=== PATIENT | female | born 1975 | race Caucasian/White ===

== ENCOUNTER 2024-11-10 16:47 | Observation (INO) | payer OTHER, SELFPAY ==
[2024-11-10] VITALS (12 sets, daily range): BP systolic 110–168; BP diastolic 60–89; PULSE 98–118; RESP 15–25; TEMP 36.5–37.1; O2SAT 96–99; BMI 57.4
--- NOTE | 2024-11-10 17:06 | ED_ITS ---
HPI - General Adult General Chief complaint: Vaginal Bleeding Stated complaint: Heavy vaginal bleeding (2wks) Time Seen by Provider: 11/10/24 17:06 Source: patient Mode of arrival: Ambulatory History of Present Illness HPI narrative: 49-year-old woman presents complaining of persistent heavy vaginal bleeding with increasing weakness, developing exertional dyspnea, cold extremities, significant fatigue headaches all within the last week. She is seen by a primary care provider in [place], has been changed from norethindrone alone to estrogen progesterone control pill is taken 2 doses of this. She had an ultrasound last week, has a materials analyst appointment on November 13 here at [facility]. He is concerned with the continued bleeding. Describes feeling 3 large overnight pads with clots in the course of the day today. Related Data Allergies Allergy/AdvReac Type Severity Reaction Status Date / Time Sulfa (Sulfonamide AdvReac Hives Verified 11/10/24 16:54 Antibiotics) Patient History Medical History (Updated 11/10/24 @ 18:55 by Frieda Nicolas MD) Abnormal pelvic ultrasound Abnormal uterine bleeding (AUB) Social History Smoking Status: Never smoker Smoking Status: Never smoker Exam Initial Vital Signs Initial Vital Signs: Vital Signs Temperature 98.3 F 11/10/24 16:54 Pulse Rate 110 H 11/10/24 16:54 Respiratory Rate 18 11/10/24 16:54 Blood Pressure 133/65 11/10/24 16:54 Pulse Oximetry 99 11/10/24 16:54 Oxygen Delivery Method Room Air 11/10/24 16:54 General: Alert appropriate in no acute distress Respiratory: Able to speak in full sentences, no obvious respiratory distress Skin: No obvious rashes, warm and dry Neurologic: Grossly intact no obvious asymmetries or abnormalities Psych: appropriate insight and affect, cooperative Course Orders Ordered: ED Orders 11/10/24 17:05 Complete Blood Count AUTO DIFF Stat Comprehensive Metabolic Panel Stat TSH w/ Reflex to FT4 Stat 11/10/24 17:42 Type and Screen Stat Sodium Chloride (Normal Saline 0.9%) 1,000 mls @ 1,000 mls/hr IV BOLUS ONE Stop: 11/10/24 18:08 Vital Signs Vital signs: Vital Signs - 8 hr 11/10/24 16:54 Temperature 98.3 F Pulse Rate 110 H Respiratory Rate 18 Blood Pressure 133/65 Pulse Oximetry 99 Oxygen Delivery Method Room Air Medical Decision Making Lab Data 11/10/24 17:05 11/10/24 17:05 Labs: Lab Results 11/10/24 Range/Units 17:05 WBC 9.6 (4.5-11.0) X10^3/uL RBC 2.57 L (4.0-5.2) X10^6/uL Hgb 7.3 L (12.0-16.0) g/dL Hct 21.8 L (36-46) % MCV 84.9 (80-100) fL MCH 28.5 (26-34) PG MCHC 33.6 (30-36) % RDW 14.2 (11.6-14.8) % Plt Count 272 (150-400) X10^3/uL Neut % (Auto) 68.1 (50-75) % Lymph % (Auto) 22.1 L (25-40) % [place] % (Auto) 7.3 (3-14) % Eos % (Auto) 1.7 L (2-4) % Baso % (Auto) 0.8 (0-2) % Neut # (Auto) 6500 (2691-1296) /uL Lymph # (Auto) 2100 (6932-4238) /uL [place] # (Auto) 700 (0-900) /uL Eos # (Auto) 200 (0-450) /uL Baso # (Auto) 100 (0-100) /uL Sodium 135 L (137-145) mmol/L Potassium 3.6 (3.4-5.1) mmol/L Chloride 102 (98-107) mmol/L Carbon Dioxide 24 (22-32) mmol/L BUN 16 (7-17) mg/dL Creatinine 0.89 (0.52-1.04) mg/dL Estimated GFR > 60 (>60) mL/min BUN/Creatinine Ratio 18.0 (6-22) Glucose 128 H (70-99) mg/dL Calcium 8.2 L (8.4-10.2) mg/dL Total Bilirubin 0.4 (0.2-1.3) mg/dL AST 27 (14-36) IU/L ALT 29 (<35) IU/L Alkaline Phosphatase 56 (38-126) U/L Total Protein 6.4 (6.3-8.2) g/dL Albumin 3.7 (3.5-5.0) g/dL Globulin 2.7 (1.7-4.1) g/dL Albumin/Globulin Ratio 1.4 (1.0-2.8) Imaging Data Pelvic ultrasound: Radiologist's Impression: Pelvic ultrasound done on November 04, 2024 Limited study due to patient body habitus Uterus is anteverted and normal in size at 10.2 x 6.9 x 5 cm. Myometrium is homogeneous. Endometrium measures 28 mm and combined thickness. Heterogeneous mass is present within the distal endometrium measuring 2.9 x 3.5 x 2.5. Trace fluid present within the endometrial canal. Ovaries not visualized, no pathologic free abdominal or pelvic fluid Impression: Suspicious for heterogeneous endometrial mass. May represent an endometrial polyp, no vascular stalk is visualized. In postmenopausal patient neoplasm could be considered, correlate clinically, consider endometrial biopsy, alternatively gynecologic protocol MRI or hysterosonogram could be used to further characterize findings MDM Narrative Medical decision making narrative: 49-year-old woman with increasing vaginal bleeding for the last 3 months worse over the last 5 days. Has had vaginal ultrasound described above significantly thickened endometrium with possible mass. In 5 days she has dropped her hemoglobin from 13.5-7.3 and presents today symptomatic complaining of exertional dyspnea, she is tachycardic at rest, her extremities are cold and she generally feels unwell. Care is reviewed with [facility]. Given the type 1 diabetes, the dramatic drop in H&H and 5 days and current symptomatic anemia we will plan on transfusing beginning with 2 units and admitting under the care of Dr. Smyth for definitive care and diagnosis. Discharge Plan Departure Patient Disposition: Admitted as Observation Clinical Impression: Vaginal bleeding, ABLA (acute blood loss anemia), Type 1 diabetes
[2024-11-10 17:15] LABS: Hematocrit 21.8 % (36-46); Hemoglobin 7.3 g/dL (12.0-16.0); Mean Corpuscular HGB Conc 33.6 % (30-36); Mean Corpuscular Hemoglobin 28.5 PG (26-34); Mean Corpuscular Volume 84.9 fL (80-100); Platelet Count 272 X10^3/uL (150-400)
[2024-11-10 17:16] LABS: Add Manual Diff / Slide Review NO; Lymphocytes Absolute Auto 2100 /uL (1100-4500)
[2024-11-10 17:25] LABS: Alanine Aminotransferase 29 IU/L (<35); Albumin 3.7 g/dL (3.5-5.0); Albumin Globulin Ratio 1.4 (1.0-2.8); Alkaline Phosphatase 56 U/L (38-126); Blood Urea Nitrogen 16 mg/dL (7-17); Calcium 8.2 mg/dL (8.4-10.2); Carbon Dioxide 24 mmol/L (22-32); Chloride 102 mmol/L (98-107); Estimated Glomerular Filt Rate > 60 mL/min (>60); Globulin 2.7 g/dL (1.7-4.1); Glucose 128 mg/dL (70-99); HEMOLYSIS < 15 (0-50); Potassium 3.6 mmol/L (3.4-5.1); Sodium 135 mmol/L (137-145); Total Protein 6.4 g/dL (6.3-8.2)
[2024-11-10 17:58] LABS: TSH w/ Reflex to FT4 5.40 uIU/mL (0.47-4.68)
[2024-11-10] MEDS: SODIUM CHLORIDE 0.9% 1,000 ML 1000 ML IV (18:06)
[2024-11-10 18:24] LABS: Free T4, Direct Thyroxine 1.27 ng/dL (0.78-2.19)
--- NOTE | 2024-11-10 18:25 | PC.NURSE ---
patient states since vaginal bleeding started she is spotting bright red blood throughout the day and at night having heavy bleeding with clots. also feeling short of breath when going up stairs at her home.
--- NOTE | 2024-11-10 18:27 | PM.GYNHP.1 ---
History of Present Illness History of Present Illness Reason for admission: vaginal bleeding Narrative: Aby Romo is a 49 year old female perimenopausal female who presents to ED with c/o 2wks heavy vaginal bleeding. Pt was previously started on progestin-only pill per her PCP with recent change to combined OCP secondary to prolonged bleeding however did not start latter until 2d ago. She has additionally had OSH pelvic US that resulted significant for either endometrial mass vs polyp vs fibroid and had been referred to [facility] ([place]ard, scheduled 11/13). Pt was feeling progressively symptomatic with lightheadedness/dizziness and fatigue and presented to ED for further evaluation. On arrival she was noted to be tachycardic to 110bpm, hypertensive without fever. OSH US report was visualized (see below), hgb/hct 7.3/21.8 and on-call FURNA[employer] WASH EQUIPMENT OPERATOR provider consulted with recommendation to proceed with transfusion in setting of symptomatic hemorrhagic anemia, planned admission. On my arrival patient is resting comfortably in bed, pale without diaphoresis. She states that her cycle has not been regular for the past 2-3yrs and was mostly just experiencing occasional spotting. Approximately 18mos ago she developed persistent low-grade spotting that she reported to her PCP and was started on POP that stopped her irregular bleeding. Starting on 10/26 she began experiencing a heavier flow with saturation of multiple pads as well as passage of clots. She reported this to her provider ([place]) who obtained labs, pelvic US and a referal to F[employer]NA[employer] AND WASH EQUIPMENT OPERATOR (Leonard) was scheduled for 11/13. Pt was last seen by her provider on 11/06 at which time a pelvic exam was performed which noted significant blood within the vaginal vault as well as a friable pink mole-like lesion of the anterior cervix. At time of 11/06 encounter pt was instructed to change from POP to combined OCP however did not start this medication until 11/08. Pt states that since starting the medication she feels like her bleeding has lightened significantly however her symptoms of LH/dizziness/fatigue are worsening. She notes that in addition to her vaginal bleeding she has been struggling with BLE edema that started with an antihypertensive (amlodipene) and has since been changed to losartan but has not seen improvement in the edema. PMHx significant for insulin-dependent DM (wears CGM as well as insulin pump, POCT BG 147 at time of interview), CHTN, class 3 obesity (BMI 58), hypothyroid on synthroid 150mcg (normal fT4 on arrival). OBHx significant for h/o x3 tested to 10# with h/o suspected GDM in P3. Surgical hx significant for prior D&C for SAB. Family hx notable for first degree family h/o uterine and breast cancer (mother). OSH pelvic US 11/04: Limited study due to patient body habitus Uterus is anteverted and normal in size at 10.2 x 6.9 x 5 cm. Myometrium is homogeneous. Endometrium measures 28 mm and combined thickness. Heterogeneous mass is present within the distal endometrium measuring 2.9 x 3.5 x 2.5 without vascular stalk. Trace fluid present within the endometrial canal. Ovaries not visualized, no pathologic free abdominal or pelvic fluid Impression: Suspicious for heterogeneous endometrial mass. May represent an endometrial polyp, no vascular stalk is visualized. In postmenopausal patient neoplasm could be considered, correlate clinically, consider endometrial biopsy, alternatively gynecologic protocol MRI or hysterosonogram could be used to further characterize findings [facility] Medical History (Updated 11/10/24 @ 18:55 by Frieda Nicolas MD) Abnormal pelvic ultrasound Abnormal uterine bleeding (AUB) Social History Smoking Status: Never smoker Meds Home Medications and Allergies Allergies Allergy/AdvReac Type Severity Reaction Status Date / Time Sulfa (Sulfonamide AdvReac Hives Verified 11/10/24 16:54 Antibiotics) Review of Systems Review of Systems ROS: Yes All systems reviewed with the patient and are negative except as otherwise documented Exam Vital Signs (past 8 hours): - 11/10/24 16:54 11/10/24 18:11 Temperature 98.3 F Pulse Rate 110 H 110 H Respiratory Rate 18 15 Blood Pressure 133/65 168/79 H Pulse Oximetry 99 98 Oxygen Delivery Method Room Air Oxygen Delivery Method Room Air Const General: cooperative, comfortable and No acute distress Nutritional Appearance: obese Orientation: alert, awake and oriented x3 Limitations: mental status not altered Resp Effort & Inspection: normal respiratory effort and able to speak in complete sentences Cardio Rate: tachycardic GI Inspection: large pannus and obesity Palpation: soft Other: deferred, no pelvic bed available/limited by pt habitus; pt to bathroom while in ED and states bleeding was significantly less, +clots but no saturation of pad Skin General: no rashes or lesions noted Neuro General: patient alert, patient awake and patient oriented x3 Extrem General: normal to inspection Other: +2 pitting edema BLE Psych Mental Status: mental status grossly normal Judgment: judgment good Objective Labs 11/10/24 17:05 11/10/24 17:05 Labs: Laboratory Results - last 24 hr 11/10/24 11/10/24 17:05 18:00 WBC 9.6 RBC 2.57 L Hgb 7.3 L Hct 21.8 L MCV 84.9 MCH 28.5 MCHC 33.6 RDW 14.2 Plt Count 272 Neut % (Auto) 68.1 Lymph % (Auto) 22.1 L Edwards % (Auto) 7.3 Eos % (Auto) 1.7 L Baso % (Auto) 0.8 Neut # (Auto) 6500 Lymph # (Auto) 2100 Edwards # (Auto) 700 Eos # (Auto) 200 Baso # (Auto) 100 Sodium 135 L Potassium 3.6 Chloride 102 Carbon Dioxide 24 BUN 16 Creatinine 0.89 Estimated GFR > 60 BUN/Creatinine Ratio 18.0 Glucose 128 H Calcium 8.2 L Total Bilirubin 0.4 AST 27 ALT 29 Alkaline Phosphatase 56 Total Protein 6.4 Albumin 3.7 Globulin 2.7 Albumin/Globulin Ratio 1.4 TSH 5.40 H Free T4 1.27 Crossmatch See Detail Assessment & Plan Assessment and plan (1) Abnormal uterine bleeding (AUB): Status: Acute (2) Abnormal pelvic ultrasound: Status: Acute (3) ABLA (acute blood loss anemia): Status: Acute Plan 49yo perimenopausal female presents with acute AUB to symtpomatic anemia, OSH imaging with evidence of endometrial abnormality Acute AUB to symptomatic anemia Suspect structural anomaly per review of OSH report, indication for further surgical diagnostic evaluation now with acute symptomatic blood loss anemia Admit to medsurg (observation) transfuse 2u pRBC NPO at midnight, will plan for OR in AM pending coordination of team/schedule availability for hysteroscopy, endometrial biopsy/D&C/possible levonorgestrel IUD Plan of care with pharmacy, no IV estrogen or combined OCP available on formulary and thus will plan for PO provera q8h Hypothyroid continue home synthroid 150mcg daily Chronic HTN continue home losartan 50mg PO daily hold home furosemide in setting of intravascular depletion Insulin dependent DM GCM/insulin pump per pt home supplies, consult pharmacy in AM F: NS @75cc/hr following transfusion E: no repletions indicated N: NPO at midnight DVT ppx: SCDs while in bed Time-Based Coding :: [TOTAL MINUTES] spent with patient and on the chart (including review of chart, obtaining history, exam, reviewing outside data, placing orders, documenting exam and treatment plan, and counseling patient) on [DATE].
--- NOTE | 2024-11-10 18:59 | PC.NURSE ---
patient requested to get up and use the restroom, patient states she has her own supplies to clean and is having her stay with her.
[2024-11-10] MEDS: MEDROXYPROGESTERONE ACETATE 10 MG TABLET PO (20:02)
--- NOTE | 2024-11-10 20:16 | PC.NURSE ---
Blood running at 175ml/hr. Pt going upstairs, admitted inpatient.
--- NOTE | 2024-11-10 21:34 | PC.NURSE ---
admission pt to ac from ED at 2039. vss. 1st unit of PRBCs infusing @ 175cc/hr. Pt able to ambulate from bed to BR with steady gait. pt with noticable blood clot on dami-pad and bloody urine. Denies any pain or cramping. Pt has implanted insulin pump. Paperwork signed. Oriented to room and plan of care. Instructed to use call light for needs and prior to activity for assess and assist with equipment. Pt aware of NPO after midnight status.
[2024-11-11] VITALS (19 sets, daily range): BP systolic 106–152; BP diastolic 60–86; PULSE 92–139; RESP 10–90; TEMP 36.3–36.9; O2SAT 92–99; BMI 57.4
--- NOTE | 2024-11-11 | PATH_ITS ---
[facility] Accession Number: [id number] No. of containers..01 Tissue . 01 Material submitted: . endometrium - ENDOMETRIAL CURETTINGS . 01 Diagnosis: ENDOMETRIAL CURETTINGS: Portions of weakly proliferative endometrium with pseudodecidualized stromal change, suggestive of possible exogenous hormone effect. Some endometrial tissue fragments contain acute inflammatory cells and rare plasma cells; cannot completely exclude chronic active endometritis. Please correlate with clinical findings. Fragments of myometrium; negative for cytologic atypia, regions of necrosis, or increased mitotic activity. Negative for endometrioid intraepithelial neoplasia or malignancy. Changes could be consistent with a submucosal leiomyoma, in the appropriate clinical and imaging setting. [facility] 11/19/2024 1757 Local . 01 Electronically signed: . Nhung Pandya MD, Pathologist NPI- [id number] . 01 Gross description: . Received in formalin with two identifiers and endometrial curetting, are multiple garcia soft tissue fragments admixed in mucohemorrhagic material received with a collection sock and multiple fragments of friable Telfa paper aggregating to 3.7 x 3.6 x 1.4 cm. Filtered and submitted entirely in A1-A3. ([id number]) /MRV 11/18/2024 1719 Local . 01 Pathologist provided ICD-10: N93.9, R93.89, D62 . 01 CPT . 515834 Performed at: [address] [facility] [address], [place], [place] [id number] MD Andry Portillo MD Phone: [phone]
[2024-11-11] MEDS: MEDROXYPROGESTERONE ACETATE 10 MG TABLET PO (03:02)
--- NOTE | 2024-11-11 03:14 | PC.NURSE ---
Addendum entered by Yudy Marroquin R.N. 11/11/24 07:06: Patient up to bathroom, reports no dizziness, reports one pad less saturated but with clotting present. Patient replaced pad and returned to bed without difficulty. Original Note: Patient up to bathroom, reports no dizziness or nausea, no concerns with ambulation. Patient reported one pad saturated w/ blood, minimal clots. Patient replaced pad and returned to bed without any difficulty.
[2024-11-11] MEDS: LEVOTHYROXINE 75 MCG TABLET 150 MCG PO (05:38)
[2024-11-11 05:57] LABS: Add Manual Diff / Slide Review NO; Hematocrit 26.2 % (36-46); Hemoglobin 8.9 g/dL (12.0-16.0); Lymphocytes Absolute Auto 2400 /uL (1100-4500); Mean Corpuscular HGB Conc 34.1 % (30-36); Mean Corpuscular Hemoglobin 29.1 PG (26-34); Mean Corpuscular Volume 85.5 fL (80-100); Platelet Count 285 X10^3/uL (150-400)
[2024-11-11 06:20] LABS: Alanine Aminotransferase 26 IU/L (<35); Albumin 3.4 g/dL (3.5-5.0); Albumin Globulin Ratio 1.4 (1.0-2.8); Alkaline Phosphatase 50 U/L (38-126); Blood Urea Nitrogen 12 mg/dL (7-17); Calcium 8.2 mg/dL (8.4-10.2); Carbon Dioxide 24 mmol/L (22-32); Chloride 104 mmol/L (98-107); Estimated Glomerular Filt Rate > 60 mL/min (>60); Globulin 2.5 g/dL (1.7-4.1); Glucose 100 mg/dL (70-99); HEMOLYSIS < 15 (0-50); Potassium 3.6 mmol/L (3.4-5.1); Sodium 136 mmol/L (137-145); Total Protein 5.9 g/dL (6.3-8.2)
--- NOTE | 2024-11-11 08:00 | P.PN_ITS ---
Subjective Subjective Date Patient Seen: 11/11/24 Time Patient Seen: 07:30 Interval history: Pt resting in bed, states subjective improvement in fatigue, difficulty sleeping overnight. Reports vaginal bleeding initially slowed, then volume increased again this AM at 0530, passage of 2 large palm-sized clots immediately prior to interview. Denies cramping. NPO since midnight. Exam Vital Signs (past 8 hours): - 11/11/24 01:42 11/11/24 06:09 Temperature 98 F 97.7 F Pulse Rate 92 H 93 H Respiratory Rate 18 16 Blood Pressure 106/65 129/78 Pulse Oximetry 97 Oxygen Flow Rate 0 Oxygen Delivery Method Room Air Oxygen Flow Rate 0 Const General: cooperative, comfortable and well developed Nutritional Appearance: obese Orientation: alert, awake and oriented x3 Limitations: mental status not altered Resp Effort & Inspection: normal respiratory effort and able to speak in complete sentences Cardio Pulses: normal peripheral pulses GI Inspection: large pannus and obesity Palpation: soft Other: deferred Skin General: no rashes or lesions noted Neuro General: patient alert, patient awake and patient oriented x3 Extrem General: normal to inspection Psych Mental Status: mental status grossly normal Judgment: judgment good Objective Labs 11/11/24 05:38 11/11/24 05:38 Labs: Laboratory Results - last 24 hr 11/10/24 11/10/24 11/11/24 17:05 18:00 05:38 WBC 9.6 10.5 RBC 2.57 L 3.06 L Hgb 7.3 L 8.9 L Hct 21.8 L 26.2 L MCV 84.9 85.5 MCH 28.5 29.1 MCHC 33.6 34.1 RDW 14.2 15.0 H Plt Count 272 285 Neut % (Auto) 68.1 68.1 Lymph % (Auto) 22.1 L 22.9 L [place] % (Auto) 7.3 6.7 Eos % (Auto) 1.7 L 1.7 L Baso % (Auto) 0.8 0.6 Neut # (Auto) 6500 7200 H Lymph # (Auto) 2100 2400 [place] # (Auto) 700 700 Eos # (Auto) 200 200 Baso # (Auto) 100 100 Sodium 135 L 136 L Potassium 3.6 3.6 Chloride 102 104 Carbon Dioxide 24 24 BUN 16 12 Creatinine 0.89 0.81 Estimated GFR > 60 > 60 BUN/Creatinine Ratio 18.0 14.8 Glucose 128 H 100 H Calcium 8.2 L 8.2 L Total Bilirubin 0.4 1.5 H AST 27 25 ALT 29 26 Alkaline Phosphatase 56 50 Total Protein 6.4 5.9 L Albumin 3.7 3.4 L Globulin 2.7 2.5 Albumin/Globulin Ratio 1.4 1.4 TSH 5.40 H Free T4 1.27 Blood Type O Negative Antibody Screen Negative Crossmatch See Detail [facility] Medical History (Updated 11/10/24 @ 18:55 by Frieda Nicolas MD) Abnormal pelvic ultrasound Abnormal uterine bleeding (AUB) Social History household members: spouse Smoking Status: Never smoker Assessment & Plan Assessment and plan (1) Abnormal uterine bleeding (AUB): Status: Acute (2) ABLA (acute blood loss anemia): Status: Acute Plan 49yo perimenopausal female, HD2 observation following overnight admission in setting of acute AUB to symptomatic anemia Acute AUB to symptomatic anemia s/p 2u pRBC with appropriate rise NPO since midnight, pt consented this AM for hysteroscopy, possible myosure polypectomy, dilation and curettage, placement of mirena IUD tentatively added to OR schedule for 1130 continue pad counts, gentle IVF hydration, PO provera q8h until procedure insulin pump/CGM mgmt per pt, pharmacy consulted this AM dispo pending intraoperative findings Time-Based Coding :: [TOTAL MINUTES] spent with patient and on the chart (including review of chart, obtaining history, exam, reviewing outside data, placing orders, documenting exam and treatment plan, and counseling patient) on [DATE]. 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
--- NOTE | 2024-11-11 08:22 | EKG_ITS ---
[facility] [address] [address] [address] [address] Test Date: 2024-11-11 Pat Name: Aby Romo Department: Room: 203 Gender: Female Shock Absorption Floor Layer: Magnolia JAMES : 1975 Requested By: Order Number: [id number] Reading MD: Micah Mart MD Measurements Intervals [place] Rate: 99 P: 32 [place]: 148 QRS: -19 QRSD: 92 T: 59 QT: 376 QTc: 482 Interpretive Statements Normal sinus rhythm Prolonged QT Electronically Signed On 11-11-2024 11:40:27 PDT by Micah Mart MD
[2024-11-11] MEDS: FAMOTIDINE 20 MG/2 ML VIAL IV (09:57)
[2024-11-11] MEDS: LACTATED RINGERS 1,000 ML 42 ML IV (09:57)
--- NOTE | 2024-11-11 10:55 | PM.PREOP ---
Pre-operative Note Interval Note History & Physical reviewed/Exam performed by Physician: Yes Changes to H&P: No ASA Class (for procedural sedation): III
--- NOTE | 2024-11-11 11:44 | SUR.OPER ---
Lithotomy on padded OR bed, with wedge in place, head on pillow, bed extenders placed on each side bilaterally, arms secured on pillows on padded arm boards at <90 degrees abduction. Legs secured in padded yellow fins stirrups. Dr. collins and anesthesia in room at time of positioning, surgeon approved final position. all pressure points padded.
[2024-11-11] MEDS: SILVER NITRATE STICK 2 EACH TOP (12:00)
--- NOTE | 2024-11-11 12:28 | P.OP_ITS ---
Operative Date/Time/Diagnoses Date of procedure: 11/11/24 Time of procedure: 11:45 Pre-op diagnosis: AUB Post-op diagnosis: same Procedure & Clinicians Procedure: hysteroscopy, myosure D&C, mirena IUD Same procedure(s) as scheduled: Yes Indications: AUB to symptomatic anemia Surgeon: Frieda Nicolas Click Yes if Unassisted: Yes Anesthesia Type: General Operative Notes Findings: normal external female genitalia cervix with generous SCJ, noted anterior nabothian cyst endometrial cavity largely obscured by blood, atypical vesicular appearance of endometrium Specimen(s): other (endometrial currettings ) Applied: implant(s) (mirena IUD ) Estimated Blood Loss (mL): 100 Blood products transfused: none Procedure in detail: Pt was taken to the operating room, transferred to OR table and anesthesia was induced with placement of ETT..? Pt had her legs placed in Ismael stirrups and an exam under anesthesia was performed. The patient was prepped and draped in a sterile fashion.? A time out was performed. ?The bladder was emptied via straight catheter in sterile fashion, 25cc concentrated urine.? A sterile speculum was inserted into the vagina.? The cervix was visualized and grasped anteriorly using a single tooth tenaculum.? The uterus sounded to 12 cm and the cervical os was serially dilated using Novak dilators up to 17f to allow for passage of the hysteroscope.? The 5mm 0 degree hysteroscope was then inserted into the uterus with findings as noted.? The small Myosure device was introduced and the endometrium including visualized pathology was fractionally resected under direct visualization.The hysteroscope was removed and the uterus was sharply curetted until a gritty texture was noted throughout.? Mirena IUD obtained from office supply was placed per site operations manager instructions and strings trimmed to 3cm. The tenaculum was removed and hemostasis was noted at insertion sites after brief application of silver nitrate.? The speculum was removed and hemostasis was again noted to be excellent. 800mg misoprostol was placed per rectum for further bleeding prophylaxis.? The patient then had her legs taken out of stirrups.? The patient tolerated the procedure well and without difficulty.? The patient was awakened from anesthesia and taken to PACU in stable condition. ? Complications: none Post-operative Condition: stable Disposition: Acute Care Plan for aftercare: anticipate return to acute care following routine postop recovery in PACU, possible dc to home later this evening pending clinical course
--- NOTE | 2024-11-11 12:33 | CM.DANOTE ---
Initial DCP Assessment Visit Note Reviewed EMR and team rounds for pt's medical status and updates. 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 Pt lives independently with her spouse in their own home in [place]. Her spouse will transport her home once she's medically stable for d/c, likely tomorrow, 11/12. No CM d/c needs are identified at this time. Payor: Jonathan Kee Medical Attending: Dr. Nicolas Pt is a 49 year-old F who presented to the ED last evening with c/o heavy vaginal bleeding, weakness, SOB w/exertion, fatigue, and headaches for the last week. She was also recently switched to a different type of control, which was considered as part of the contributing factors. Pt is also a type-1 diabetic, on a pump. ED pelvic ultrasound showed an endometrial mass. Plan was made to admit for blood-loss anemia and need for transfusion, make her NPO for a plan to take her to the OR in the am for a hyteroscopy and endometrial biopsy/possible D&C. DCP will continue to follow for any final home d/c resource or assistance needs. 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 No History Provided By Medical Record Has Patient been No admitted in last 30 days? Prior Living House Arrangements Household Members spouse Type of Drives own vehicle transporation used prior to admit Independent with ADL Yes 's Is patient alert and Yes oriented? Comment No home d/c needs identified at this time. Barriers to No Discharge Discharge Plan Home Transportation Spouse Arrangement Referrals Initiated None needed Whiteboard Updated Yes in Patient Room with name and ext. # of Technical Account Executive Review Status In Process Please Provide Date 11/11/24 Initial DC Assessment Was Performed
[2024-11-11] MEDS: BENZOCAINE/MENTHOL 1 LOZ PKT 1 EACH PO (13:30)
[2024-11-11] MEDS: ACETAMINOPHEN 325 MG TABLET 650 MG PO (14:36)
[2024-11-11] MEDS: SODIUM CHLORIDE 0.9% 250 ML 21 ML IV (14:46)
--- NOTE | 2024-11-11 17:02 | PM.DS.IH.1 ---
History of Present Illness History of Present Illness Date Patient Seen: 11/11/24 Time Patient Seen: 17:02 Date of Onset of Symptoms: 11/25/24 Chief complaint: Heavy vaginal bleeding (2wks) Narrative: Pt resting comfortably in bed, eager to eat dinner. Denies pain, has not seen any return of vaginal bleeding since procedure. States she feels markedly better with transfusion of 3rd unit pRBC. Strongly desires discharge to home if possible. Discharge Providers Provider Date of admission: 11/10/24 19:03 Discharge Date: 11/11/24 Primary care physician: Sadaf Lassiter PA-C Discharge provider: Frieda Nicolas MD Summary Hospital Course Discharge Diagnosis: acute AUB to symptomatic anemia Hospital Course: 49yo perimenopausal female with 2wk h/o progressive AUB presented to ED with c/o heavy vaginal bleeding, dyspnea and fatigue. Pt was noted to be tachycardic with acute blood loss anemia and active vaginal bleeding. She was admitted to [facility] for overnight observation and received 2u pRBC. Pt underwent hysteroscopy with myosure D&C and placement of mirena IUD on HD2 without complication. She reported persistent fatigue and received a 3rd unit pRBC with marked improvement in symptoms thereafter. Vaginal bleeding minimal following procedure. Patient discharged to home with strict bleeding precautions, planned short interval follow-up in office 1-2wks with planned review of pathology and confirmation of IUD placement at that time. Status at Discharge Cognitive/behavioral status at discharge: oriented Functional status at discharge: independent ambulation Overall status at discharge: patient is back to baseline Time Spent with Patient Time spent: Less than 30 minutes Exam Vital Signs (past 8 hours): - 11/11/24 10:57 11/11/24 12:15 11/11/24 12:20 Temperature 98.4 F 97.4 F L Pulse Rate 97 H 139 H 102 H Respiratory Rate 16 90 H 24 Blood Pressure 134/81 131/77 131/77 Pulse Oximetry 98 99 92 Oxygen Delivery Method Room Air Nasal Cannula Room Air Oxygen Flow Rate 109 11/11/24 12:25 11/11/24 12:31 11/11/24 12:36 Temperature Pulse Rate 103 H 103 H 103 H Respiratory Rate 10 L 20 19 Blood Pressure 130/83 144/76 H 137/72 Pulse Oximetry 97 96 95 Oxygen Delivery Method Nasal Cannula Nasal Cannula Room Air Oxygen Flow Rate 3 2 11/11/24 12:45 11/11/24 12:56 11/11/24 13:15 Temperature 98.0 F 98.0 F 98.0 F Pulse Rate 96 H 99 H 97 H Respiratory Rate 17 20 16 Blood Pressure 126/63 126/63 120/65 Pulse Oximetry 97 95 94 Oxygen Delivery Method Oxygen Flow Rate 1 2 1 11/11/24 13:48 11/11/24 14:45 11/11/24 14:47 Temperature 98.2 F 97.7 F 97.7 F Pulse Rate 99 H 95 H 99 H Respiratory Rate 18 18 20 Blood Pressure 138/71 129/70 129/70 Pulse Oximetry 93 98 Oxygen Delivery Method Oxygen Flow Rate 1 1 11/11/24 15:09 11/11/24 15:13 11/11/24 16:00 Temperature 98.0 F 98.0 F 97.8 F Pulse Rate 96 H 96 H 98 H Respiratory Rate 17 17 18 Blood Pressure 113/60 113/60 124/65 Pulse Oximetry 95 92 Oxygen Delivery Method Oxygen Flow Rate 2 0 Oxygen Delivery Method Room Air Oxygen Flow Rate 0 Const General: cooperative, comfortable and well developed Nutritional Appearance: obese Orientation: alert, awake and oriented x3 Limitations: mental status not altered Resp Effort & Inspection: normal respiratory effort and able to speak in complete sentences Cardio Pulses: normal peripheral pulses GI Inspection: large pannus and obesity Palpation: soft Other: no bleeding on peripad Skin General: no rashes or lesions noted Neuro General: patient alert, patient awake and patient oriented x3 Psych Mental Status: mental status grossly normal Judgment: judgment good Objective Labs 11/11/24 05:38 11/11/24 05:38 Labs: Laboratory Results - last 24 hr 11/10/24 11/10/24 11/11/24 17:05 18:00 05:38 WBC 9.6 10.5 RBC 2.57 L 3.06 L Hgb 7.3 L 8.9 L Hct 21.8 L 26.2 L MCV 84.9 85.5 MCH 28.5 29.1 MCHC 33.6 34.1 RDW 14.2 15.0 H Plt Count 272 285 Neut % (Auto) 68.1 68.1 Lymph % (Auto) 22.1 L 22.9 L [place] % (Auto) 7.3 6.7 Eos % (Auto) 1.7 L 1.7 L Baso % (Auto) 0.8 0.6 Neut # (Auto) 6500 7200 H Lymph # (Auto) 2100 2400 [place] # (Auto) 700 700 Eos # (Auto) 200 200 Baso # (Auto) 100 100 Sodium 135 L 136 L Potassium 3.6 3.6 Chloride 102 104 Carbon Dioxide 24 24 BUN 16 12 Creatinine 0.89 0.81 Estimated GFR > 60 > 60 BUN/Creatinine Ratio 18.0 14.8 Glucose 128 H 100 H POC Whole Bld Glucose Calcium 8.2 L 8.2 L Total Bilirubin 0.4 1.5 H AST 27 25 ALT 29 26 Alkaline Phosphatase 56 50 Total Protein 6.4 5.9 L Albumin 3.7 3.4 L Globulin 2.7 2.5 Albumin/Globulin Ratio 1.4 1.4 TSH 5.40 H Free T4 1.27 Blood Type O Negative Antibody Screen Negative Crossmatch See Detail 11/11/24 11/11/24 11/11/24 07:58 10:54 15:00 WBC RBC Hgb Hct MCV MCH MCHC RDW Plt Count Neut % (Auto) Lymph % (Auto) [place] % (Auto) Eos % (Auto) Baso % (Auto) Neut # (Auto) Lymph # (Auto) [place] # (Auto) Eos # (Auto) Baso # (Auto) Sodium Potassium Chloride Carbon Dioxide BUN Creatinine Estimated GFR BUN/Creatinine Ratio Glucose POC Whole Bld Glucose 109 H 94 164 H Calcium Total Bilirubin AST ALT Alkaline Phosphatase Total Protein Albumin Globulin Albumin/Globulin Ratio TSH Free T4 Blood Type Antibody Screen Crossmatch 11/11/24 16:52 WBC RBC Hgb Hct MCV MCH MCHC RDW Plt Count Neut % (Auto) Lymph % (Auto) [place] % (Auto) Eos % (Auto) Baso % (Auto) Neut # (Auto) Lymph # (Auto) [place] # (Auto) Eos # (Auto) Baso # (Auto) Sodium Potassium Chloride Carbon Dioxide BUN Creatinine Estimated GFR BUN/Creatinine Ratio Glucose POC Whole Bld Glucose 167 H Calcium Total Bilirubin AST ALT Alkaline Phosphatase Total Protein Albumin Globulin Albumin/Globulin Ratio TSH Free T4 Blood Type Antibody Screen Crossmatch [facility] Medical History (Updated 11/10/24 @ 18:55 by Frieda Nicolas MD) Abnormal pelvic ultrasound Abnormal uterine bleeding (AUB) Social History household members: spouse Smoking Status: Never smoker Discharge Assessment & Plan Assessment and Plan Assessment: AUB of undetermined etiology, symptomatic acute blood loss anemia Plan of Treatment: s/p surgical management (Hysteroscopy, D&C, mirena IUD) s/p transfusion 3u pRBC with appropriate clinical response dc to home, await surgical pathology for final care planning Discharge Plan Discharge Plan Patient Disposition: Home Provider Discharge Comment: Nothing in the vagina for 2 weeks. No tampons, intercourse, douching, swimming in fresh water/pools/hot tubs. Tub baths are ok if the tub is cleaned well first Discharge orders & Medications Prescriptions: Continued levothyroxine 175 mcg tablet 175 mcg PO DAILY losartan 50 mg tablet 50 mg PO DAILY insulin aspart U-100 100 unit/mL solution Patient Comments: doses based on what she's eating furosemide 20 mg tablet 20 mg PO DAILY rosuvastatin 10 mg tablet 10 mg PO ONCE PM [place] (28) 0.5-35 mg-mcg tablet 1 tab PO DAILY KLS AllerClear D-24HR tablet See Rx Instructions .ROUTE .COMPLEX Rx Instructions: 10-240mg; take 1 tablet PO daily Follow up/Referrals: Sadaf Lassiter PA-C [Primary Care Provider, Internal Medicine] Diet/Activity/Treatments Diet: Diet as Tolerated and Carb-consistent/Diabetic Visit Report/Discharge Packet Stand Alone Forms: Patient Portal/API, Stroke Signs & Symptoms Discharge Data Primary Care Provider: Sadaf Lassiter Attending Provider: Frieda Nicolas Admit Date/Time: 11/10/24 19:03 Quality VTE Deep Vein Thrombosis/Pulmonary Embolism Present on Admission: No IH PROFEE Charge Codes Discharge inpatient/observation: [id number]
[2024-11-11] MEDS: FUROSEMIDE 20 MG/2 ML VIAL IV (17:05)
--- NOTE | 2024-11-11 17:46 | PC.NURSE ---
Pt is dressed and ready for discharge home with Spouse. IV's have been removed. Blood transfusion was completed. Discharge instructions were reviewed with Pt including stroke education, s/s of infection, and Pt was encouraged to drink fluids to prevent constipation or dehydration. Pt was advised to call her doctor if she had increased bleeding or clots larger than a 50 cent piece. Pt denied further questions and was taken out via w/c by EDGER SAW OPERATOR to POV with Spouse and all belongings.
== END 2024-11-11 17:50 | disposition home or self-care (01) ==
LOC: ED 19:00 → AC 19:04
PROVIDERS: Admitting Provider Obstetrics & Gynecology; Emergency Provider Emergency Medicine; PCP Physician Assistant; Referring Provider Emergency Medicine; Visit Provider Obstetrics & Gynecology
PROC: 0UDB8ZZ Extraction of Endometrium, Via Natural or Artificial Opening Endoscopic (ICD-10-PCS; CPT 58558; principal; 2024-11-11 11:15)
DX: N93.9 Abnormal uterine and vaginal bleeding, unspecified (principal); R93.89 Abnormal findings on diagnostic imaging of other specified body structures; E03.9 Hypothyroidism, unspecified; D62 Acute posthemorrhagic anemia; I10 Essential (primary) hypertension; E10.9 Type 1 diabetes mellitus without complications; Z79.890 Hormone replacement therapy; Z96.41 Presence of insulin pump (external) (internal); Z79.4 Long term (current) use of insulin; Z30.430 Encounter for insertion of intrauterine contraceptive device; N88.8 Other specified noninflammatory disorders of cervix uteri; R00.0 Tachycardia, unspecified; E66.01 Morbid (severe) obesity due to excess calories; Z68.43 Body mass index [BMI] 50.0-59.9, adult; Z80.3 Family history of malignant neoplasm of breast; Z80.49 Family history of malignant neoplasm of other genital organs
CPT/HCPCS: 58558; 58300; 36415; 36430; 58561; 80053; 82962; 84439; 84443; 85025; 86850; 86900; 86901; 93005; 93010; 96361; 96374; 96375; 99222; 99284; G0378; P9016; C1713; J1100; J1885; J1938; J2250; J2405; J2704; J3010; J3490; J7298; S0191